=== PATIENT | male | born 1995 | race Caucasian/White ===

== ENCOUNTER 2019-12-28 00:06 | Emergency (ER) | payer SELFPAY ==
[~2019-12-28] VITALS: Ht 165.1 cm; Wt 89.8 kg
[2019-12-28 01:26] VITALS: BP 146/80
== END 2019-12-28 02:07 | disposition home or self-care (01) ==
LOC: ER 00:12
DX: J06.9 Acute upper respiratory infection, unspecified (principal); H11.33 Conjunctival hemorrhage, bilateral; R23.3 Spontaneous ecchymoses
CPT/HCPCS: 71045